=== PATIENT | male | born 1970 | race Caucasian/White ===

== ENCOUNTER 2019-07-05 18:30 | Emergency (ER) | payer SELFPAY ==
[2019-07-05] MEDS ORDERED: traMADol HCl 50 MG TAB ONE (19:33)
[2019-07-05 19:35] LABS: #Basophils 0.1 thou/uL (0.0-0.2); #Eosinphils 0.6 thou/uL (0.0-0.7); #Lymphocytes 2.5 thou/uL (1.20-3.40); #Monocytes 0.7 thou/uL (0.11-0.59); #Neutrophils 5.2 thou/uL (1.40-6.50); %Basophils 1.2 % (0.0-1.0); %Eosinophils 6.7 % (0.0-10.0); %Lymphocytes 27.4 % (21.0-51.0); %Monocytes 7.6 % (0.0-10.0); %Neutrophils 57.1 % (42.0-75.0); Hemoglobin 12.6 g/dL (14.0-18.0); Mean Corpuscular HGB CONC 31.3 g/dL (32.0-36.0); Mean Corpuscular Volume 70.1 fL (78.0-98.0); Mean Platelet Volume 11.5 fL (7.4-10.4); Platelet Count 252 thou/uL (130-400); RBC Distribution Width 14.5 % (11.5-14.5); Red Blood Cell (RBC) Count 5.74 mill/uL (4.70-6.10); White Blood Cell (WBC) Count 9.1 thou/uL (4.8-10.8)
[2019-07-05 19:39] LABS: Prothrombin Time 12.8 sec (12.0-14.7)
[2019-07-05 19:51] LABS: ALT (SGPT) 13 U/L (8-55); AST (SGOT) 12 U/L (5-34); Albumin 3.5 g/dL (3.5-5.0); Alkaline Phosphatase 75 U/L (40-110); Anion Gap 13 mmol/L (10-20); BUN (Urea Nitrogen) 10 mg/dL (8.9-20.6); Bilirubin, Total 0.2 mg/dL (0.2-1.2); Calc. Creatinine Clearance 0 mL/min (70-130); Calcium 8.7 mg/dL (7.8-10.44); Carbon Dioxide 26 mmol/L (22-29); Chloride 105 mmol/L (98-107); Estimated GFR-MDRD Greater than 90; Globulin 2.8 g/dL (2.4-3.5); Glucose 85 mg/dL (70-105); Potassium 3.7 mmol/L (3.5-5.1); Protein, Total 6.3 g/dL (6.0-8.3); Sodium 140 mmol/L (136-145)
[2019-07-05 19:52] LABS: Hypochromia SLIGHT = 6-15 cells (100X) (0-5/hpf); Large Platelets SLIGHT; MDiff Complete? YES; Microcytosis SLIGHT = 6-15 cells (100X) (0-5/hpf); Platelet Morphology Comment Appears Adequate; Polychromasia SLIGHT = 2-3 cells (100X) (0-2/hpf); Target Cells SLIGHT = 2-5 cells (100X) (0-1/hpf); Tear Drops SLIGHT = 2-5 cells (100X) (0-1/hpf)
--- NOTE | 2019-07-05 20:12 | ULT ---
Right lower extremity venous Doppler ultrasound: 07/05/2019 COMPARISON: None HISTORY: Redness and swelling, edema, assess for DVT TECHNIQUE: Multiplanar grayscale sonographic imaging of the venous structures of the right lower extr emity obtained with color flow and spectral analysis FINDINGS: The right common femoral vein, greater saphenous vein, and profunda femoral vein appear unr emarkable. The proximal and mid aspect of the right femoral vein is unremarkable as well. Within the distal aspect of the right femoral vein along the posterior wall of the vessel there is a peripheral area which is hypoechoic and does not fill on color Doppler evaluation. The femoral vein is incompletely compressible in this region as well. Right popliteal vein and posterior tibial vein are patent. IMPRESSION: There is a focal eccentric area of decreased echogenicity within the distal aspect of the femoral vein. The femoral vein is partially compressible in this region. This suggests DVT of the distal right femoral vein, age indeterminate. This could potentially represent chronic clot but eccen tric acute clot in the proper clinical setting cannot be excluded.
== END 2019-07-05 22:38 | disposition home or self-care (01) ==
LOC: ERS 18:30
DX: I82.411 Acute embolism and thrombosis of right femoral vein (principal); F17.210 Nicotine dependence, cigarettes, uncomplicated
CPT/HCPCS: 36415; 80053; 85025; 85610; 85730